=== PATIENT | female | born 1995 | race Asian ===

== ENCOUNTER 2025-03-03 17:26 | Inpatient (IN) | payer OTHER ==
[2025-03-03 18:24] LABS: ABSOLUTE IMMATURE GRANULOCYTES 0.03 x10^3/uL (0.0-0.031); BASOPHILS # 0.04 x10^3/uL (0.01-0.08); EOSINOPHIL % 0.8 % (0.7-5.8); EOSINOPHILS # 0.07 x10^3/uL (0.04-0.36); MCHC 32.8 g/dl (32.2-35.5); MEAN CELL VOLUME 87.8 fl (79.4-94.8); MEAN PLT VOLUME 11.1 fl (9.4-12.3); MONOCYTE # 0.59 x10^3/uL (0.24-0.86); MONOCYTE % 6.8 % (4.7-12.5); RDW 14.6 % (12.1-16.5)
[2025-03-03] MEDS: LACTATED RINGERS SOLUTION 1,000 ML/1,000 ML INFUS.BAG IV SCH (18:30)
[2025-03-03 18:42] LABS: INR 0.94 (0.83-1.09); PROTHROMBIN TIME (PATIENT) 10.2 SEC (9.7-13.0)
[2025-03-03 18:45] LABS: ACTIVATED PTT 25.2 SECONDS (25.2-36.5)
[2025-03-03 18:51] LABS: CO2 21 mmol/L (21-32); GLUCOSE,RANDOM 102 mg/dL (74-106)
[2025-03-03 18:55] LABS: CREATININE 0.5 mg/dL (0.55-1.3)
[2025-03-03 19:11] VITALS: BMI 28.5
[2025-03-03] MEDS ORDERED: OXYTOCIN 30 UNITS in 0.9% NS 30 UNIT/500 ML INFUS.BAG IVPB ONE (19:28)
[2025-03-03] MEDS: OXYTOCIN 30 UNITS in 0.9% NS 30 UNIT/500 ML INFUS.BAG IVPB SCH (19:35)
[2025-03-04] MEDS ORDERED: BUTORPHANOL TARTRATE 1 MG/ML VIAL IVPUSH PRN (01:13)
[2025-03-04] MEDS ORDERED: PROMETHAZINE HCL 25 MG/1 ML VIAL IVPB PRN (01:13)
[2025-03-04] MEDS ORDERED: FENTANYL/BUPIVACAINE/NS/PF - PCEA - 50 ML DISP.SYRIN EP ONE ×5 (02:14→16:01)
[2025-03-04] MEDS: FENTANYL/BUPIVACAINE/NS/PF - PCEA - 50 ML DISP.SYRIN EP SCH (03:05)
[2025-03-04] MEDS ORDERED: NALOXONE HCL 0.4 MG/ML VIAL IVPUSH PRN (03:14)
[2025-03-04] MEDS ORDERED: OXYTOCIN 20 UNITS in 0.9% NS 20 UNIT/1,000 ML INFUS.BAG IV ONE (15:10)
[2025-03-04] MEDS: OXYTOCIN 20 UNITS in 0.9% NS 20 UNIT/1,000 ML INFUS.BAG IV SCH (17:50)
[2025-03-04 18:41] LABS: CORD BASE EXCESS -8.8 mmol/L (0-2); CORD HCO3 18.8 mmHg (20-29); CORD PCO2 47.0 mmHg (30-78); CORD pH 7.221 (7.14-7.44)
[2025-03-04 18:43] LABS: CORD BASE EXCESS -12.7 mmol/L (0-2); CORD HCO3 16.7 mmHg (20-29); CORD PCO2 51.9 mmHg (30-78); CORD pH 7.126 (7.14-7.44)
[2025-03-04] MEDS ORDERED: BENZOCAINE 28 GM HEMORRHOIDAL OINTMENT TP PRN (19:07)
[2025-03-04] MEDS ORDERED: ACETAMINOPHEN 325 MG TABLET (FP) PO PRN (19:07)
[2025-03-04] MEDS ORDERED: BISACODYL 10 MG SUPP.RECT RC PRN (19:07)
[2025-03-04] MEDS ORDERED: METHYLERGONOVINE MALEATE 0.2 MG/1 ML AMP IM PRN (19:07)
[2025-03-05] MEDS: SENNOSIDES/DOCUSATE COMBO (SENNA PLUS) TABLET (UD) PO PRN (00:11)
[2025-03-05] MEDS: IBUPROFEN 600 MG TABLET (FP) PO PRN (00:11)
[2025-03-05] MEDS: BENZOCAINE 20% 57 GM BOTTLE TP PRN (00:14)
[2025-03-05] MEDS: WITCH HAZEL 50% (TUCKS) 40 PAD/JAR PAD TP PRN (00:15)
[2025-03-05 07:52] LABS: ABSOLUTE IMMATURE GRANULOCYTES 0.04 x10^3/uL (0.0-0.031); BASOPHILS # 0.05 x10^3/uL (0.01-0.08); EOSINOPHIL % 0.4 % (0.7-5.8); EOSINOPHILS # 0.05 x10^3/uL (0.04-0.36); MCHC 32.5 g/dl (32.2-35.5); MEAN CELL VOLUME 89.1 fl (79.4-94.8); MEAN PLT VOLUME 11.4 fl (9.4-12.3); MONOCYTE # 0.81 x10^3/uL (0.24-0.86); MONOCYTE % 6.5 % (4.7-12.5); RDW 14.6 % (12.1-16.5)
[2025-03-05] MEDS: PRENATAL VITAMINS W/ FOLIC ACID TABLET (FP) PO SCH (09:49)
[2025-03-05 14:22] VITALS: RESP 18
[2025-03-06 11:08] VITALS: BP 117/82; PULSE 76; TEMP 98.6
== END 2025-03-06 15:10 | disposition home or self-care (01) | DRG 807 ==
LOC: JLDR 17:26 → J3W 03-04 20:22
PROVIDERS: ADMIT Specialist; ATTEND Specialist
PROC: 10D07Z6 Extraction of Products of Conception, Vacuum, Via Natural or Artificial Opening (ICD-10-PCS; principal; 2025-03-04)
PROC: 0KQM0ZZ Repair Perineum Muscle, Open Approach (ICD-10-PCS; 2025-03-04)
DX: O76 Abnormality in fetal heart rate and rhythm complicating labor and delivery (principal); Z37.0 Single live birth; O70.1 Second degree perineal laceration during delivery; Z3A.39 39 weeks gestation of pregnancy
CPT/HCPCS: 36415; 36600; 59409; 80048; 82803; 82962; 85025; 85610; 85730; 86780; 86850; 86900; 86901; 88307-TC